=== PATIENT | female | born 1995 | race Caucasian/White ===

== ENCOUNTER 2024-11-26 17:10 | Inpatient (IN) | payer OTHER, SELFPAY ==
[2024-11-26] VITALS (19 sets, daily range): BP systolic 108–149; BP diastolic 68–98; PULSE 53–72; BMI 38.2
[2024-11-26 16:25] LABS: Basophils Percent Auto 0.3 % (0.2-1.2); Eosinophils Absolute Auto 0.1 K/mm3 (0-0.3); Eosinophils Percent Auto 0.7 % (0-4.4); Hematocrit 36.2 % (37.0-47.0); Hemoglobin 11.9 g/dL (12.0-15.0); Immature Granulocyte Absolute 0.06 K/mm3 (0.00-0.031); Immature Granulocyte Percent A 0.7 % (0-0.5); Lymphocytes Absolute Auto 1.85 K/mm3 (0.9-3.2); Lymphocytes Percent Auto 20.3 % (18.3-44.2); Mean Corpuscular HGB Conc 32.9 g/dl (32-36); Mean Corpuscular Hemoglobin 25.9 pg (26-34); Mean Corpuscular Volume 78.7 fl (80-100); Mean Platelet Volume 11.6 fl (7.4-10.4); Monocytes Absolute Auto 0.5 K/mm3 (0.1-0.6); Monocytes Percent Auto 5.8 % (2.6-8.5); Neutrophils Absolute Auto 6.6 K/mm3 (1.3-6.7); Neutrophils Percent Auto 72.2 % (45.5-73.1); Platelet Count Result 192 k/mm3 (150-375); Red Cell Distribution Width 13.9 % (11.5-14.5); White Blood Count 9.1 K/mm3 (4.5-10.0)
[2024-11-26 16:32] LABS: Add Urine Microscopic? YES; Appearance Urine Clear (Clear); Bacteria Urine None Seen /hpf; Bilirubin Urine Negative (Negative); Blood Urine 1+ (Negative); Color Urine Yellow (Yellow); Glucose Urine UA Negative (Negative); Ketones Urine Negative (Negative); Leukocyte Esterase Ur Trace LEU/UL (Negative); Nitrate Urine Negative (Negative); Non Pathogenic Casts 0-2; Protein Urine Negative (Negative); RBC Urine 0-2 /hpf (0-2); Specific Grav Ur 1.005 (1.001-1.035); Squamous Epithelial Cell Urine Few /hpf (Few); Urobilinogen Urine 0.2 mg/dL (<2.0); WBC Urine 0-5 /hpf (0-3)
[2024-11-26 16:35] LABS: Alanine Aminotransferase 18 U/L (6-35); Albumin Level 3.4 g/dL (3.5-5.1); Alkaline Phosphatase 119 U/L (38-126); Anion Gap 7 mmol/L (4-12); Aspartate Amino Transferase 23 U/L (14-36); Bilirubin,Total 0.4 mg/dL (0.2-1.3); Blood Urea Nitrogen 9 mg/dL (7-17); Calcium 8.5 mg/dL (8.4-10.2); Carbon Dioxide 20 mmol/L (22-30); Chloride 106 mmol/L (98-107); Estimated CRCL calculation 148 ml/min; Estimated Glomerular Filt Rate > 60; Glucose 81 mg/dL (65-110); Potassium 4.1 mmol/L (3.4-5.0); Sodium 133 mmol/L (137-145); Uric Acid 5.2 mg/dL (2.5-7.5)
[2024-11-26 16:57] LABS: Creatinine Urine 27.7 mg/dL; Total Protein Urine Random 16 mg/dL; Ur Ttl Prot Creatinine Ratio 0.58 mg/mg (0-0.20)
--- NOTE | 2024-11-26 17:10 | PC.NURSE ---
Called Dr. Lowry with lab results and BPs. Orders received to admit for Cervidil induction.
[2024-11-26] MEDS: DINOPROSTONE 10 MG VAG INSERT VAGINAL (19:01)
--- NOTE | 2024-11-26 19:03 | LDADM ---
This patient, Namita Elena, was admitted to Labor/Delivery/Recovery 103 on 11/26/24 at 17:10. Plans for labor, pain management and were discussed with patient. Patient/family oriented to hospital policies and general routines including ID bracelet, bed and alarms, visiting hours, pain management, procedures, bathroom and other care routines, personal items, smoking policy, room service/diet and guest tray routines, security routines, and visiting hours. Patient/Family are encouraged to report perceived risks to care and to ask questions if they do not understand what they are told or what they should do. See OBIX for further documentation.
[2024-11-26 19:56] LABS: Rapid Plasma Reagin Non-Reactive (NonReactive)
[2024-11-26 20:23] LABS: HIV 1/2 Ab P24 Ag Result Negative (Negative)
[2024-11-27] VITALS (176 sets, daily range): BP systolic 111–156; BP diastolic 56–134; PULSE 46–667; RESP 14–20; TEMP 36.1–37.5; O2SAT 93–100
--- NOTE | 2024-11-27 07:25 | P.HP_ITS ---
H&P: HPI History of Present Illness Date/Time: 11/27/24 07:01 Chief Complaint: elevated blood pressure Narrative: Namita is a 29yo @ 37.3wks who presented to her routine visit and was found to have elevated blood pressures. She did endorse worsening swelling; but denied any CARNEY, vision changes, RUQ pain, CP, or SOB. She was sent to L&D where she was found to have multiple moderate range BPs and her urine P/C ratio was positive at 0.58. She received cervidil overnight, but it had to be removed at 2200 due to multiple prolonged decels. No prolonged decelerations have been noted since removal. Her is complicated by: - newly diagnosed pre-eclampsia w/o severe features; P/c 0.58 - CMV non-immune - Obesity; ASA 81mg - Failed 1 hour glucose; 3 hour normal Review of Systems Constitutional: Constitutional: Denies chills, Denies fever(s) and Denies headache(s) Eyes: Eyes: Denies change in vision ENT: Denies headache(s) Cardiovascular: Cardiovascular: Denies chest pain and Denies dyspnea Respiratory: Respiratory: Denies dyspnea Genitourinary: Genitourinary: Denies abnormal vaginal bleeding and Denies vaginal discharge Neurologic: Denies headache(s) Psychiatric: Psychiatric: Denies anxiety and Denies depression [facility] Past Medical History Medical History Suppression of menses Surgical History Surgical History H/O wisdom tooth extraction Family History Family History Grandparent Breast cancer Social History Social History Smoking status: Former smoker Tobacco type: e-cigarettes/vaping Smoking end date: 03/30/24 Alcohol intake: former Substance use: never Substance use type: marijuana Do You Feel Safe in your Home?: Yes Lack of Transportation: No Lack of Food: Never True Current Housing: I Have Housing Concerned About Future Housing: No Difficulty Paying Gas/Electric Bills: No Difficulty Paying for Meds: No Currently Unemployed: No Education: Bachelor's Degree Difficulty w/ Childcare or Family Care: No Living arrangements: with family Occupation/Education: occupation Gender identity (if verbalized by the patient): Female Spiritual care concerns: No Meds Home Medications and Allergies Home Medications ?Medication ?Instructions ?Recorded ?Confirmed ?Type vits no.126-ferrous fum tablet PO 04/15/24 11/26/24 History 28 mg iron-folic acid 800 mcg tablet (Classic ) cetirizine 10 mg capsule (Zyrtec) 10 mg PO DAILY PRN allergy symptoms 07/08/24 11/27/24 History aspirin 81 mg chewable tablet 81 mg PO DAILY 08/06/24 11/27/24 History Allergies Allergy/AdvReac Type Severity Reaction Status Date / Time No Known Allergies Allergy Verified 11/27/24 03:48 Vital Signs Vital Signs - 24 hr 11/26/24 16:17 11/26/24 16:31 11/26/24 16:46 Pulse Rate 67 66 60 Blood Pressure 133/94 H 125/90 137/98 H 11/26/24 17:01 11/26/24 18:01 11/26/24 18:16 Pulse Rate 62 64 70 Blood Pressure 129/92 H 145/97 H 133/98 H 11/26/24 18:31 Pulse Rate 72 Blood Pressure 137/94 H Exam Const: General: cooperative, healthy appearing, comfortable, no acute distress and obese Nutritional Appearance: obese Orientation/consciousness: patient oriented x3 Resp: Effort & Inspection: normal respiratory effort Cardio: Rate: regular rate GI: GI Palp: No abdominal tenderness : Other: FHT's: 130's/ mod radha/ + accels/ irregular decels, 3 prolonged decels overnight; none since removal of cervidil - cat 2 TOCO: irregular ctxs Cervix: 1/thick/-3 Membranes: intact Presentation: cephalic confirmed on bedside US Skin: General skin exam: normal color Neuro: General: patient oriented x3 Extrem: General: normal to inspection Psych: Appearance: grossly normal Affect: normal affect Attitude: cooperative H&P: Results Labs Labs: Short CBC 11/26/24 Range/Units 16:13 WBC 9.1 (4.5-10.0) K/mm3 Hgb 11.9 L (12.0-15.0) g/dL Hct 36.2 L (37.0-47.0) % Plt Count 192 (150-375) k/mm3 BMP 11/26/24 16:12 Sodium 133 L Potassium 4.1 Chloride 106 Carbon Dioxide 20 L BUN 9 Creatinine 0.54 L Glucose 81 Calcium 8.5 Liver Function 11/26/24 Range/Units 16:12 Total Bilirubin 0.4 (0.2-1.3) mg/dL AST 23 (14-36) U/L ALT 18 (6-35) U/L Alkaline Phosphatase 119 (38-126) U/L Albumin 3.4 L (3.5-5.1) g/dL Urine 11/26/24 Range/Units 16:13 Urine Color Yellow (Yellow) Urine Appearance Clear (Clear) Urine pH 7.0 (5.0-9.0) Ur Specific [place] 1.005 (1.001-1.035) Urine Protein Negative (Negative) mg/dL Urine Glucose (UA) Negative (Negative) mg/dL Assessment and Plan Assessment and plan (1) Pre-eclampsia: Qualifiers: Trimester: third trimester Qualified Code(s): O14.93 - Unspecified pre- eclampsia, third trimester Code(s): O14.90 - Unspecified pre-eclampsia, unspecified trimester Status: Acute Plan - pt diagnosed with pre-eclampsia w/o sf @ 37.2wks; I recommended that we proceeded with induction of labor - S/p cervidil overnight, that was removed early due to decelerations (has had moderate variability with accelerations the whole time); FHT very reassuring now (category 1) - Cervix unfavorable, but will avoid cytotec, balloon due to decelerations--unable to AROM yet - Pitocin - low dose per protocol - Briefly discussed that if prolonged decelerations continue, would potentially need to proceed with - Anesthesia consult PRN pain - GBS negative
[2024-11-27] MEDS: LACTATED RINGERS 1,000 ML 125 ML IV CONT ×2 (07:26→11:40)
[2024-11-27] MEDS: OXYTOCIN 30 UNITS/NS 500 ML 30 UNITS/500 ML BAG IV CONT (07:27)
--- NOTE | 2024-11-27 11:46 | P.PNAN_ITS ---
Anes - Eval Pre Procedure Procedure: Labor Pain Management Date/Time: 11/27/24 11:46 Surgeon: Alen Pre Op Diagnosis: Induction of Labor Patient Data Age: 29 Gender: F Height: 1.63 m Weight: 101.15 kg Last Vital Signs Temp 97 F L 11/27/24 07:32 Pulse 55 L 11/27/24 11:01 BP 144/76 H 11/27/24 11:01 Pulse Ox 100 11/27/24 11:44 O2 Del Method Room Air 11/26/24 19:03 Allergies Allergy/AdvReac Type Severity Reaction Status Date / Time No Known Allergies Allergy Verified 11/27/24 03:48 Home Medications ?Medication ?Instructions ?Recorded ?Confirmed ?Type vits no.126-ferrous fum tablet PO 04/15/24 11/26/24 History 28 mg iron-folic acid 800 mcg tablet (Classic ) cetirizine 10 mg capsule (Zyrtec) 10 mg PO DAILY PRN allergy symptoms 07/08/24 11/27/24 History aspirin 81 mg chewable tablet 81 mg PO DAILY 08/06/24 11/27/24 History Laboratory Tests 11/26/24 11/26/24 11/26/24 16:12 16:13 19:22 WBC 9.1 K/mm3 (4.5-10.0) RBC 4.60 M/mm3 (4.2-5.4) Hgb 11.9 L g/dL (12.0-15.0) Hct 36.2 L % (37.0-47.0) MCV 78.7 L fl (80-100) MCH 25.9 L pg (26-34) MCHC 32.9 g/dl (32-36) RDW 13.9 % (11.5-14.5) Plt Count 192 k/mm3 (150-375) MPV 11.6 H fl (7.4-10.4) Immature Gran % (Auto) 0.7 H % (0-0.5) Neut % (Auto) 72.2 % (45.5-73.1) Lymph % (Auto) 20.3 % (18.3-44.2) [place] % (Auto) 5.8 % (2.6-8.5) Eos % (Auto) 0.7 % (0-4.4) Baso % (Auto) 0.3 % (0.2-1.2) Lymph # (Auto) 1.85 K/mm3 (0.9-3.2) [place] # (Auto) 0.5 K/mm3 (0.1-0.6) Eos # (Auto) 0.1 K/mm3 (0-0.3) Baso # (Auto) 0.0 K/mm3 (0.0-0.1) Abs Immat Gran (auto) 0.06 H K/mm3 (0.00-0.031) Absolute Neuts (auto) 6.6 K/mm3 (1.3-6.7) Absolute Nucleated RBC 0.000 K/mm3 (0.0-0.012) Nucleated RBC % 0.0 % (0.0-0.2) Sodium 133 L mmol/L (137-145) Potassium 4.1 mmol/L (3.4-5.0) Chloride 106 mmol/L (98-107) Carbon Dioxide 20 L mmol/L (22-30) Anion Gap 7 mmol/L (4-12) BUN 9 mg/dL (7-17) Creatinine 0.54 L mg/dL (0.7-1.0) Estim Creat Clear Calc 148 ml/min Estimated GFR > 60 (59 - ) Glucose 81 mg/dL (65-110) Uric Acid 5.2 mg/dL (2.5-7.5) Calcium 8.5 mg/dL (8.4-10.2) Total Bilirubin 0.4 mg/dL (0.2-1.3) AST 23 U/L (14-36) ALT 18 U/L (6-35) Alkaline Phosphatase 119 U/L (38-126) Total Protein 7.0 g/dL (6.3-8.2) Albumin 3.4 L g/dL (3.5-5.1) Urine Color Yellow (Yellow) Urine Appearance Clear (Clear) Urine pH 7.0 (5.0-9.0) Ur Specific [place] 1.005 (1.001-1.035) Urine Protein Negative mg/dL (Negative) Urine Glucose (UA) Negative mg/dL (Negative) Urine Ketones Negative mg/dL (Negative) Ur Blood (Man) 1+ H (Negative) Urine Nitrate Negative (Negative) Urine Bilirubin Negative (Negative) Urine Urobilinogen 0.2 mg/dL (<2.0) Leukocyte Esterase Rfl Trace H YUNG/UL (Negative) Urine RBC 0-2 /hpf (0-2) Urine WBC 0-5 /hpf (0-3) Ur Squamous Epith Cells Few /hpf (Few) Urine Bacteria None seen /hpf Urine Casts 0-2 U Random Total Protein 16 mg/dL Urine Creatinine 27.7 mg/dL Protein/Creat Ratio 2 0.58 H mg/mg (0-0.20) RPR Non-reactive (NonReactive) HIV 1&2 Ab/P24 Ag 4thGn Negative (Negative) Blood Type B Positive Antibody Screen Negative Patient hx anesthesia problems: none Family hx anesthesia problems: none Results Review: All pre-operative results and documents have been reviewed as part of the pre- operative evaluation. [facility] Past Medical History Medical History Suppression of menses Surgical History Surgical History H/O wisdom tooth extraction Family History Family History Grandparent Breast cancer Social History Social History Smoking status: Former smoker Tobacco type: e-cigarettes/vaping Smoking end date: 03/30/24 Alcohol intake: former Substance use: never Substance use type: marijuana Do You Feel Safe in your Home?: Yes Lack of Transportation: No Lack of Food: Never True Current Housing: I Have Housing Concerned About Future Housing: No Difficulty Paying Gas/Electric Bills: No Difficulty Paying for Meds: No Currently Unemployed: No Education: Bachelor's Degree Difficulty w/ Childcare or Family Care: No Living arrangements: with family Occupation/Education: occupation Gender identity (if verbalized by the patient): Female Spiritual care concerns: No Exam Day of Procedure 11/27/24 11:46
--- NOTE | 2024-11-27 12:37 | PM.OBPNLAB ---
Pain Control Date/time seen: 11/27/24 12:37 Pain control: epidural Pelvic Exam Dilation (cm): 1 (.5) Effacement (%): 20 station: -3 Amniotic membrane status: Ruptured (AROM, clear 1230) Comments: late decelerations with modera Contractions Monitor mode: Internal (placed on this exam) Contraction frequency: 2 Contraction pattern: Regular Status status: Category ll Assessment and Plan Pitocin rate (mU/min): 8 Assessment: induction ongoing Plan: continuous present management Comments: - monitoring closely - AROM, IUPC placed on this exam - if heart decelerations continue, pt aware will be proceed with primary
--- NOTE | 2024-11-27 13:21 | PM.OBPNLAB ---
Pain Control Date/time seen: 11/27/24 13:21 Pain control: epidural Pelvic Exam Dilation (cm): 1 (.5) Effacement (%): 20 station: -3 Amniotic membrane status: Ruptured (AROM, clear 1230) Contractions Monitor mode: Internal (placed on this exam) Contraction frequency: 2 Contraction pattern: Regular Status status: Category ll Comments: recurrent late decelerations and severe variables even after discontinuation of pitocin Assessment and Plan Plan: Comments: - remote from delivery and recurrent decelerations even after discontinuation of pitocin and multiple position changes
--- NOTE | 2024-11-27 13:23 | WPDHPUPDATE1 ---
History and Physical Update Update Date/Time: 11/27/24 13:23 History and Physical has been reviewed, including an updated exam of the patient. There are NO changes in the patient's condition. Risks, benefits, and alternatives have been discussed and questions answered. Patient agrees to proceed with procedure.
--- NOTE | 2024-11-27 13:26 | W.PM.OBCSD ---
OB - Delivery Note Procedure Delivery date: 11/27/24 Pre-op diagnosis: Decelerations (recurrent late decelerations) and Preeclampsia w/o severe features Post-op Diagnosis: Same Induction method: Per Cervidil Protocol (removed after 4-5 hours due to prolonged decels) Delivery augmentation: Rupture of Membranes and Pitocin Delivery monitor: External FHT and Internal Uterine Prior to decision for section, ACOG/SM labor guidelines were considered and discussed with the patient and staff. Decision made to proceed with the section.: Yes Procedure Performed: Primary Primary branch: low cervical, transverse Surgeon: Michelle Lowry MD Anesthesia type: Epidural Description of Procedure/Findings: female infant, clear fluid. cord around right lower leg. Thin cord, eccentric insertion?. Normal fallopian tubes and ovaries bilaterally. good hemostasis at end of case. Specimen: Yes Estimated Blood Loss: 355 Pathology: Yes (placenta) Complications: No immediate complications Condition: Stable Disposition: Floor Baby Date of : 11/27/24 Time of : 14:14 Gestational Age by Date: 37 (.3) gender: Female Weight (pounds): 5 Weight (ounces): 4 presentation: vertex position: Right Occiput Transverse (/asynclytic ) Placenta delivery description: Expressed Cord Vessel Description: 3 Vessels and Delayed Cord Clamping score one minute: 8 score five minutes: 9 Narrative: Namita was counseled on all risks and benefits in detail. She was taken to the operating room where epidural was found to be adequate. She was then prepped and draped in the normal sterile fashion. She received 2g Ancef and 500mg azithromycin and a time out was performed. A Pfannenstiel incision was made in the skin and carried down to the underlying fascia. The fascia was nicked on either side of the midline and the fascial incision was extended laterally and superiorly using curved Jimenze scissors. The fascia was then elevated using Stephanie clamps and the underlying rectus muscles were dissected off the fascia, superiorly and inferiorly. The rectus muscles were then in the midline and the peritoneum was entered bluntly. Once adequate exposure was obtained, a Mobius self retractor was placed within the abdomen. A bladder flap was created. A low transverse incision was made on the lower uterine segment and clear fluid was noted. The occiput was brought to the hysterotomy and the head was easily delivered. The shoulders and body then followed without complications. The leg cord was reduced. The infant had spontaneous cry and the mouth and nose were bulb suctioned. The cord clamping was delayed but then doubly clamped and cut and the infant was handed off to the awaiting pediatric nurse. A segment of the cord was collected for cord gases. The remaining cord blood was collected for typing. With Pitocin infusing, the placenta delivered with gentle traction on the cord without complications. The uterus was then cleared out of all clots and debris using a clean, moist lap. The hysterotomy was then repaired in a running fashion using 0 Vicryl. A second layer imbricating suture was then made using 0 Vicryl. A figure of 8 stitch using 0-Vicryl was placed in the middle of the hysterotomy and it was then found to be hemostatic and good uterine tone was noted. The bilateral adnexa were examined and found to be normal. The pelvis was cleared of all clots and fluid. The Mobius retractor was removed from the abdomen. The peritoneum, muscle, and fascia were examined and made hemostatic with Bovie cautery. The fascia was then repaired using a 0 Vicryl suture in a running fashion. The subcutaneous tissue was then irrigated and made hemostatic with Bovie cautery. The subcutaneous tissue was then reapproximated using 2-0 Vicryl. The skin was then closed using 4-0 Monocryl in a running subcuticular fashion. A Mepilex dressing was placed over the incision. Sponge, lap, needle and instrument counts were correct at the end of the procedure x2. The patient tolerated the procedure well and was taken to recovery in a stable condition.
[2024-11-27] MEDS: AZITHROMYCIN 500 MG/NS 250 ML 500 MG/250 ML BAG 250 MG IVPB (13:39)
[2024-11-27] MEDS: ACETAMINOPHEN 500 MG TABLET 1000 MG PO (13:40)
[2024-11-27] MEDS: ONDANSETRON INJ 4 MG/2 ML VIAL IV PUSH (13:51)
[2024-11-27] MEDS: FAMOTIDINE 20 MG/2 ML VIAL IV PUSH (13:52)
[2024-11-27] MEDS: ceFAZolin 2 GM/D5W 50 ML 2 GM/50 ML BAG IVPB (13:54)
--- NOTE | 2024-11-27 18:06 | PC.NURSE ---
1730. Consulted with patient to assess needs related to . Discussed with mother her successes, concerns and any questions she has. We reviewed working with the infant, supporting breast, protecting her nipples with an optimal deep latch, good positioning, and good hand washing. Encouraged understanding the benefits of skin to skin, responding to feeding cues, frequencies of feeding 8-12 times in 24 hours (approximately 2-3 hours), duration of feedings, milk production, intake/output feeding sheet and signs of adequate intake encouraging swallowing at the breast. Reviewed positioning and alignment, supporting breast, off-centered (asymmetrical latch) and leading with the chin with big, open, wide gape. struggled to latch to the left breast, mom with pretty flat nipples. We attempted football and cross cradle positions. We attempted on the R breast and infant was unable to latch deeply and effectively. Nipple shield provided to mother due to flat nipples. Reviewed good handwashing, cleaning the nipple shield and the appropriate way to apply and use as a tool. Discussed with mom the nipple shield precautions, possible complications associated with the risks and benefits. Reviewed practicing with a nipple shield, then without and how to protect the milk supply and production. Mom and baby guide referred to as a resource for outpatient services, community resources and when to call a provider. Mom voiced understanding of the importance of hand expression, nipple stimulation and initiating a pumping schedule if continues to nurse with the shield. Education given to the mother of how to visualize the suckling (with good rocking jaw motion) swallows (dropping of the lower jaw) and how to listen for drinking at the breast (the ka sound). The infant was able to maintain latch with the nipple shield without discomfort to mother. Nipple care reviewed with optimal latch, good positioning and using clean hands when touching her breast. Resources used to facilitate learning were used from the visual handouts & mom and baby guide. Mother voiced understanding of the education shared, to call for assistance if the does not latch or if there is discomfort with . Reported to the Primary RN.
--- NOTE | 2024-11-27 18:22 | OBPPTRN ---
1700-Patient transferred to post room #285 via stretcher. Support person present. Oriented to unit, room, information board, rooming in, admission packet and security measures. Patient verbalizes understanding.
[2024-11-27] MEDS: DEXTROSE 5%/0.45% SOD CHL 1,000 ML 125 ML IV CONT (19:55)
[2024-11-27] MEDS: ACETAMINOPHEN 325 MG TABLET 650 MG PO (21:35)
[2024-11-27] MEDS: SIMETHICONE 80 MG TAB.CHEW (21:35)
[2024-11-27] MEDS: KETOROLAC 15 MG/ML VIAL (*BKC) IV PUSH (21:35)
--- NOTE | 2024-11-27 22:00 | PC.NURSE ---
2200- NURSERY RN TO ROOM TO HELP PT WITH BREAST FEEDING INFANT.
[2024-11-28] VITALS (7 sets, daily range): BP systolic 100–123; BP diastolic 68–93; PULSE 59–82; RESP 14–18; TEMP 36.3–36.4; O2SAT 95–98
[2024-11-28] MEDS: LIDOCAINE 5% PATCH 1 PATCH TRANSDERM (01:20)
--- NOTE | 2024-11-28 02:00 | PC.NURSE ---
Breast pump provided due to sleepy and difficulty latching as well as pt's use of nipple shield. Pt pumped for 20 minutes with no output. Education given on how to use pump, how often to pump, and how to clean pump parts. Encouraged pt to pump again in 2-3 hours to mirror infants feeding pattern. Pt verbalized understanding and denied any questions or complaints at this time.
[2024-11-28] MEDS: KETOROLAC 15 MG/ML VIAL (*BKC) IV PUSH ×3 (04:00→16:50)
[2024-11-28] MEDS: ACETAMINOPHEN 325 MG TABLET 650 MG PO ×4 (04:00→23:10)
[2024-11-28] MEDS: KCL 20 MEQ/D5/0.45% SOD CHL 1,000 ML 125 ML IV CONT (04:01)
[2024-11-28 04:30] LABS: Basophils Absolute Auto 0.1 K/mm3 (0.0-0.1); Basophils Percent Auto 0.4 % (0.2-1.2); Eosinophils Absolute Auto 0.1 K/mm3 (0-0.3); Eosinophils Percent Auto 0.5 % (0-4.4); Hematocrit 27.2 % (37.0-47.0); Hemoglobin 8.9 g/dL (12.0-15.0); Immature Granulocyte Absolute 0.06 K/mm3 (0.00-0.031); Immature Granulocyte Percent A 0.4 % (0-0.5); Immature Platelet Fraction Pct 7.8 % (0.9-11.2); Lymphocytes Absolute Auto 1.92 K/mm3 (0.9-3.2); Lymphocytes Percent Auto 13.9 % (18.3-44.2); Mean Corpuscular HGB Conc 32.7 g/dl (32-36); Mean Corpuscular Hemoglobin 25.9 pg (26-34); Mean Corpuscular Volume 79.1 fl (80-100); Mean Platelet Volume 12.2 fl (7.4-10.4); Monocytes Absolute Auto 0.7 K/mm3 (0.1-0.6); Monocytes Percent Auto 5.2 % (2.6-8.5); Neutrophils Percent Auto 79.6 % (45.5-73.1); Platelet Count Result 131 k/mm3 (150-375); Red Blood Count 3.44 M/mm3 (4.2-5.4); White Blood Count 13.8 K/mm3 (4.5-10.0)
--- NOTE | 2024-11-28 07:04 | P.PNOB_ITS ---
OB - PN: Subj Subjective Date/time seen: 11/28/24 07:04 Narrative: POD#1 Namita reports doing well today. 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 Her pain is controlled. She is tolerating regular diet and passed gas. Her jones catheter is still in place; she has not ambulated yet. She denies any issues with her incision. She is breast feeding. OB - PN: Obj Data Labs 11/28/24 04:10 11/26/24 16:12 Labs: Laboratory Results - last 24 hr 11/28/24 04:10 WBC 13.8 H RBC 3.44 L Hgb 8.9 L D Hct 27.2 L MCV 79.1 L MCH 25.9 L MCHC 32.7 RDW 14.0 Plt Count 131 L MPV 12.2 H Immature Gran % (Auto) 0.4 Neut % (Auto) 79.6 H Lymph % (Auto) 13.9 L [place] % (Auto) 5.2 Eos % (Auto) 0.5 Baso % (Auto) 0.4 Lymph # (Auto) 1.92 [place] # (Auto) 0.7 H Eos # (Auto) 0.1 Baso # (Auto) 0.1 Abs Immat Gran (auto) 0.06 H Absolute Neuts (auto) 11.0 H Absolute Nucleated RBC 0.000 Nucleated RBC % 0.0 % Immature Plt Fraction 7.8 OB - PN A/P Assessment and Plan (1) S/P primary low transverse : Code(s): Z98.891 - History of uterine scar from previous surgery Status: Acute (2) Pre-eclampsia: Qualifiers: Trimester: third trimester Qualified Code(s): O14.93 - Unspecified pre- eclampsia, third trimester Code(s): O14.90 - Unspecified pre-eclampsia, unspecified trimester Status: Acute (3) Non-reassuring electronic monitoring tracing: Code(s): O36.8390 - Maternal care for abnormalities of the heart rate or rhythm, unspecified trimester, not applicable or unspecified Status: Acute Plan day: 1 Plan: routine care Comments: - PO pain meds - Jones to be removed; if no spontaneous void in 6 hours, will replace catheter - Regular diet - Ambulation and hydration encouraged - Continue putting baby to breast q2-3hr - Venofer 500mg IV once, repeat CBC in AM Time Spent With Patient Time: Total time spent is greater than 50% in coordination of care (as documented) at patient's floor/unit and/or counseling patient: Review of Systems 2 Constitutional: Constitutional: Denies chills, Denies fever(s) and Denies headache(s) Eyes: Eyes: Denies change in vision ENT: Denies dizziness and Denies headache(s) Cardiovascular: Cardiovascular: Denies chest pain, Denies palpitations and Denies dyspnea Respiratory: Respiratory: Denies cough and Denies dyspnea Gastrointestinal: Gastrointestinal: Denies nausea and Denies vomiting Genitourinary: Comments: normal bleeding Neurologic: Denies dizziness and Denies headache(s) Endocrine: Endocrine: Denies palpitations Exam 2 Const: General: cooperative, comfortable and no acute distress O rientation/consciousness: patient oriented x3 Resp: Effort & Inspection: normal respiratory effort Auscultation: clear to auscultation bilaterally Cardio: Rate: regular rate GI: Inspection: non-distended and incision (covered with clean dressing) GI Palp: Yes abdominal tenderness (appropriate) and Yes Soft to palpation A uscultation: normal bowel sounds : Other: fundus firm Skin: General skin exam: normal color Neuro: General: patient oriented x3 Extrem: General: normal to inspection Psych: Appearance: grossly normal Affect: normal affect Attitude: c ooperative
[2024-11-28] MEDS: IRON SUCROSE COMPLEX 400 MG, IRON SUCROSE COMPLEX 100 MG in SODIUM CHLORIDE 0.9% IV 250 ML 78.57 MG IVPB (09:26)
--- NOTE | 2024-11-28 09:45 | PC.NURSE ---
Introductions were made, then consulted with patient to assess needs related to . Discussed with mother her?plans to feed?her and the?experience so far. Per mother, baby had latched two times, once on each side and she had used the shield only once. Mother wanted assistance with latching, mother sat on edge of bed and worked well with infant, attempted to latch without the nipple shield on her right breast in football hold for about 7 mins and then was able to latch baby with shield on her right breast for a total of 5 mins with effective sucking. FOB then gave baby a formula bottle and she took 16mls fairly well and mother was going to use her breast pump. Resources provided for inpatient and outpatient services with the feeding sheet, mom/baby guide and name written on the communication board. Mother voiced understanding of information and will call if there is a request for assistance. Reported to the Primary RN.
[2024-11-28] MEDS: SIMETHICONE 80 MG TAB.CHEW PO ×3 (10:06→16:51)
[2024-11-28] MEDS: DOCUSATE SODIUM 100 MG CAPSULE PO ×2 (10:06→16:51)
[2024-11-28] MEDS: MULTIVIT/MIN/PREN/FOL AC/IRON TABLET 1 TAB PO (10:07)
--- NOTE | 2024-11-28 13:49 | WPDANLDNPN2 ---
Anes-Prog Note L&D-Neuraxial Date/Time: 11/28/24 13:49 Patient feedback: Patient satisfied with post-operative pain management.
--- NOTE | 2024-11-28 13:49 | WPDANLDPN2 ---
Anes-Prog Note L&D Date/Time: 11/28/24 13:49 Neuro status: Neuro function grossly intact. Vital Signs: Last Vital Signs Temp 36.4 C L 11/28/24 12:30 Pulse 68 11/28/24 12:30 Resp 14 11/28/24 12:30 BP 107/75 11/28/24 12:30 Pulse Ox 98 11/28/24 12:30 O2 Del Method Room Air 11/27/24 17:30 Pain score (VAS): 2 I/O: Intake & Output 11/27/24 11/28/24 11/28/24 23:59 07:59 15:59 Intake Total 740 1790 Output Total 315 600 600 Balance 425 1190 -600 Patient feedback: Patient satisfied with anesthetic care.
--- NOTE | 2024-11-28 14:25 | PM.OBDSVD ---
DS: Admitting Diagnosis Discharge Date 11/30/24 Admitting Diagnosis Pre-eclampsia w/o severe features DS: Discharge Diagnosis Discharge Diagnosis (1) Pre-eclampsia: Qualifiers: Trimester: third trimester Qualified Code(s): O14.93 - Unspecified pre-eclampsia, third trimester Code(s): O14.90 - Unspecified pre-eclampsia, unspecified trimester Status: Acute (2) Non-reassuring electronic monitoring tracing: Code(s): O36.8390 - Maternal care for abnormalities of the heart rate or rhythm, unspecified trimester, not applicable or unspecified Status: Acute (3) S/P primary low transverse : Code(s): Z98.891 - History of uterine scar from previous surgery Status: Acute OB - DS: Summary OB Procedures : NST, PIH Mgmt and Ultrasound OB Procedures Intrapartum: low cervical, transverse OB Procedures: : None Peripartum Data Infant Delivery Method: Section Procedures: Procedures Operation Date: 11/27/24 14:00 Actual Procedure Side Surgeon p Section Michelle Lowry MD complications: none 1: Gender: Female Disposition of : home Status at Discharge Functional status at discharge: independent ambulation Overall status at discharge: patient is back to baseline Time Spent with Patient Time attestation: Total time spent providing and/or coordinating discharge services: Exam Const: General: cooperative, comfortable, no acute distress and obese Orientation/consciousness: patient oriented x3 Resp: Effort & Inspection: normal respiratory effort Auscultation: clear to auscultation bilaterally Cardio: Rate: regular rate GI: Inspection: non-distended and incision (covered with clean dressing) GI Palp: No abdominal tenderness and Yes Soft to palpation Auscultation: normal bowel sounds : Other: fundus firm Skin: General skin exam: normal color Neuro: General: patient oriented x3 Extrem: General: normal to inspection Psych: Appearance: grossly normal Affect: normal affect Attitude: cooperative DS: Data Data Completed and Pending Pending studies at discharge: Pending at discharge 11/27/24 15:13 Surgical [PTH] Routine Labs on day of discharge: Labs from last 24 hours 11/28/24 04:10 WBC 13.8 H RBC 3.44 L Hgb 8.9 L D Hct 27.2 L MCV 79.1 L MCH 25.9 L MCHC 32.7 RDW 14.0 Plt Count 131 L MPV 12.2 H Immature Gran % (Auto) 0.4 Neut % (Auto) 79.6 H Lymph % (Auto) 13.9 L Maury % (Auto) 5.2 Eos % (Auto) 0.5 Baso % (Auto) 0.4 Lymph # (Auto) 1.92 Maury # (Auto) 0.7 H Eos # (Auto) 0.1 Baso # (Auto) 0.1 Abs Immat Gran (auto) 0.06 H Absolute Neuts (auto) 11.0 H Absolute Nucleated RBC 0.000 Nucleated RBC % 0.0 % Immature Plt Fraction 7.8 Discharge Plan Discharge Attending physician on discharge: Michelle Lowry Discharging Clinician: Michelle Lowry Anticipated Discharge Date/Time: 11/30/24 10:00 Patient Disposition: Home, Self-Care Activity: may shower and pelvic rest Diet: regular Discharge Instructions: remove dressing on 12/03/24 no lifting over 15 pounds for 6 weeks nothing in the vagina do not drive when taking the narcotic pain pill (norco) Patient Instructions: (DC) Patient Language: Uzbek Stand Alone Forms: General Discharge Information Follow-up/Referrals: Michelle Lowry MD [Physician] - 4 Weeks Discharge Medications: New acetaminophen 325 mg Tablet 650 mg PO Q6H Qty: 60 0RF hydrocodone-acetaminophen 5-325 mg Tablet 1 tablet PO Q3H PRN (Reason: Breakthrough Pain Rated 4-6) Qty: 24 0RF docusate sodium 100 mg Capsule 100 mg PO BID Qty: 90 0RF ibuprofen 600 mg Tablet 600 mg PO Q6H Qty: 40 0RF simethicone 80 mg Tablet,Chewable 80 mg PO TIDWM Qty: 60 0RF lidocaine [Lidoderm] 5 % Adhesive Patch,Medicated 1 patch transdermal DAILY PRN (Reason: Incision pain) Qty: 15 0RF Continued Classic 28 mg iron- 800 mcg tablet 1 tablet PO DAILY Zyrtec 10 mg capsule 10 mg PO DAILY PRN (Reason: allergy symptoms) Discontinued aspirin 81 mg tablet,chewable 81 mg PO DAILY Date of admission: 11/26/24 17:10 Primary Care Provider: UNKNOWN,DOCTOR Admitting Provider: Michelle Lowry Attending physician on admission: Michelle Lowry Condition: Stable
--- NOTE | 2024-11-28 16:32 | PC.NURSE ---
On 11/28/24, the [facility] work study student, provided care and completed [employer] documentation on this patient. I have reviewed the student's documentation and agree with the findings.
--- NOTE | 2024-11-28 17:54 | PC.NURSE ---
1400. Per mom she has been able to latch to the L breast without the nipple shield and the R breast she has needed to use the shield. Mom reports she is supplementing after feeds per her preference and also pumping after a feeding if she feels it is not a good long feed. She reports she has no questions or concerns at this time and knows to call for additional assistance. number written on communication board. Reported to primary RN .
[2024-11-28] MEDS: IBUPROFEN 600 MG TABLET PO (23:10)
[2024-11-29] MEDS: LIDOCAINE 5% PATCH 1 PATCH TRANSDERM (01:54)
[2024-11-29 05:01] LABS: Hematocrit 30.9 % (37.0-47.0); Hemoglobin 9.8 g/dL (12.0-15.0); Mean Corpuscular HGB Conc 31.7 g/dl (32-36); Mean Corpuscular Hemoglobin 25.3 pg (26-34); Mean Corpuscular Volume 79.6 fl (80-100); Mean Platelet Volume 11.8 fl (7.4-10.4); Platelet Count Result 163 k/mm3 (150-375); Red Blood Count 3.88 M/mm3 (4.2-5.4); Red Cell Distribution Width 14.2 % (11.5-14.5)
[2024-11-29] MEDS: ACETAMINOPHEN 325 MG TABLET 650 MG PO ×2 (05:09→11:00)
[2024-11-29] MEDS: IBUPROFEN 600 MG TABLET PO ×2 (05:10→11:05)
[2024-11-29 07:50] VITALS: BP 122/96; PULSE 64; RESP 14; TEMP 36.8; O2SAT 98
[2024-11-29] MEDS: SIMETHICONE 80 MG TAB.CHEW PO (08:23)
[2024-11-29] MEDS: DOCUSATE SODIUM 100 MG CAPSULE PO (08:23)
[2024-11-29] MEDS: MULTIVIT/MIN/PREN/FOL AC/IRON TABLET 1 TAB PO (08:23)
[2024-11-29] MEDS: POLYSACCHARIDE IRON COMPLEX 150 MG CAPSULE PO (08:23)
--- NOTE | 2024-11-29 10:57 | PC.NURSE ---
This RN, has reviewed and verified student nurse Baltazar Sosa's charting for this patient.
--- NOTE | 2024-11-29 11:00 | PC.NURSE ---
Consulted with mother concerning needs and she shared her ability to independently latch infant. She is using the nipple shield on the right breast and not on the left. She is pumping and supplementing after each . Encouraged continuing to follow the [id number] plan at home and the parents both agree they are comfortable with this plan. Mom's breast pump should arrive tomorrow so we reviewed using the manual pump from the [employer] breast pump kit and hand expression until she gets it. Mother is feeding appropriately for growth of and understands stimulating infant to eat if needed. has had appropriate feedings in the last 24 hours meets the outcomes for weight, output, blood sugar and jaundice at this time. Reinforced understanding of milk production, transition of milk, signs of adequate intake, transition of stool, prevention/relief of engorgement, plugged ducts, mastitis, community resources, and when to call a provider using the resource of the feeding sheet along with the mom and baby guide. Mother voiced understanding of the information shared, is confident to continue effectively her at home, when to call for assistance ( Services phone number), denies any additional assistance or education at this time. Reported to the Primary RN.
[2024-11-30 10:22] VITALS: BP 135/88; PULSE 82; RESP 18; TEMP 36.9; O2SAT 100
== END 2024-11-29 12:14 | disposition home or self-care (01) | DRG 788 ==
LOC: ANHOBOP 17:21 → ANHLDR 17:38 → ANHOB2 11-28 08:01 → ANHLDR 12-02 10:19 → ANHOBPP 12-02 10:19
PROVIDERS: Admitting Provider Obstetrics & Gynecology; Visit Provider Student in an Organized Health Care Education/Training Program
PROC: 10D00Z1 Extraction of Products of Conception, Low, Open Approach (ICD-10-PCS; CPT 59514; principal; 2024-11-27 14:00)
DX: O76 Abnormality in fetal heart rate and rhythm complicating labor and delivery (principal); O14.04 Mild to moderate pre-eclampsia, complicating childbirth; O99.214 Obesity complicating childbirth; O69.82X0 Labor and delivery complicated by other cord entanglement, without compression, not applicable or unspecified; Z3A.37 37 weeks gestation of pregnancy; Z37.0 Single live birth; Z87.891 Personal history of nicotine dependence
CPT/HCPCS: 36415; 59025; 80053; 81001; 82570; 84156; 84550; 85025; 85027; 85055; 86592; 86703; 86850; 86900; 86901; 88307; A9270; G0432; J0456; J0690; J1756; J1885; J2274; J2405; J2590; J2795; J3480; J7050; J7120